=== PATIENT | male | born 1935 ===

== ENCOUNTER 2020-06-15 00:21 | Outpatient (REF) | payer MEDICARE, SELFPAY ==
[2020-06-15 06:44] LABS: Hemoglobin 13.5 g/dl (14.0-18.0); PLT CLUMP 1
[2020-06-15 06:45] LABS: Hematocrit 40.9 % (42-52); Mean Corpuscular Hemoglobin 29.9 pg (27.0-33.0); Mean Corpuscular Volume 90.5 fL (80-98); Mean Platelet Volume 11.5 fL (9.4-12.4); Platelet Count 104 X10*3/uL (160-400); Red Blood Count 4.52 X10*6/uL (4.60-5.80); Red Cell Distribution Width 16.2 % (11.0-16.0); White Blood Count 15.3 X10*3/uL (4.8-10.8)
[2020-06-15 07:06] LABS: Anion Gap 13 (12-20); Blood Urea Nitrogen 19 mg/dL (9-16); Calcium 7.5 mg/dL (8.4-10.2); Carbon Dioxide 29 mmol/L (22-29); Chloride 102 mmol/L (96-108); Estimated Glomerular Filt Rate 59; Glucose Random 136 mg/dL (60-115); Potassium 3.2 mmol/L (3.3-5.1); Sodium 141 mmol/L (135-145)
== END 2020-06-15 00:22 | disposition home or self-care (01) ==
LOC: HO.MMNH1L 00:21
PROVIDERS: Visit Provider Family Medicine
DX: U07.1 COVID-19 (principal); I10 Essential (primary) hypertension; E11.9 Type 2 diabetes mellitus without complications
CPT/HCPCS: 36415; 80048; 85027

== ENCOUNTER 2020-06-22 00:45 | Outpatient (REF) | payer SELFPAY | END 2020-06-22 00:46 | disposition home or self-care (01) | LOC: HO.MMNH1L 00:45 | PROVIDERS: Visit Provider Family Medicine | DX: Z13.89 Encounter for screening for other disorder (principal) ==